=== PATIENT | female | born 1955 | race African-American/Black ===

== ENCOUNTER 2020-10-24 11:13 | Inpatient (IN) | payer MEDICARE, MEDICAID ==
[~2020-10-24] VITALS: Ht 162.6 cm; Wt 66.2 kg
[2020-10-24 12:19] LABS: BASOPHILS % 0.4 % (0.0-2.0); HEMOGLOBIN. 12.8 g/dL (12.0-16.0); MEAN CORPUSCULAR VOLUME 89.3 fL (81.0-99.0); MEAN PLATELET VOLUME 10.1 fl (7.4-10.4); MONOCYTES % 6.4 % (2.0-8.0); NEUTROPHILS % 61.2 % (40.0-76.0); PLATELET 124 x1000/uL (130-400); RED BLOOD CELL COUNT 4.26 mill/uL (4.2-5.4); RED CELL DISTRIBUTION WIDTH 13.5 % (11.6-14.6)
[2020-10-24 12:25] LABS: CHLORIDE 104 mEq/L (98-107)
[2020-10-24 12:32] LABS: ETHANOL BLOOD < 10 mg/dL
[2020-10-24 12:35] LABS: LDL CHOLESTEROL 62 mg/dL (5-100)
[2020-10-24] MEDS ORDERED: ASPIRIN 325MG EC TABLET PO ONE (12:45)
[2020-10-24] MEDS ORDERED: IOHEXOL-350 100 ML BOTTLE ONE (12:46)
[2020-10-24 12:53] LABS: PROTHROMBIN TIME 11.1 sec (9.6-11.0)
[2020-10-24] MEDS ORDERED: ONDANSETRON HCL 4MG/2ML INJ IV STA (13:04)
[2020-10-24] MEDS ORDERED: SODIUM CHLORIDE 0.9% 1,000 ML IV ONE (13:15)
[2020-10-24] MEDS ORDERED: MECLIZINE 25MG TABLET PO ONE (13:15)
[2020-10-24 13:22] LABS: CLARITY URINE TURBID (CLEAR); COLOR URINE YELLOW (YELLOW); KETONES URINE NEGATIVE (NEGATIVE); LEUKOCYTE ESTERASE URINE TRACE (NEGATIVE); NITRITE URINE NEGATIVE (NEGATIVE); OCCULT BLOOD URINE 2+ (NEGATIVE); PH URINE 8.5 (4.5-8.0); PROTEIN URINE NEGATIVE (NEGATIVE); SPECIFIC GRAVITY URINE 1.051 (1.005-1.030)
[2020-10-24 13:55] LABS: *BARBITURATES SCREEN URINE NEGATIVE (NEGATIVE)
[2020-10-24 13:56] LABS: *AMPHETAMINES SCREEN URINE NEGATIVE (NEGATIVE)
[2020-10-24 13:59] LABS: *BENZODIAZEPINES SCREEN URINE NEGATIVE (NEGATIVE)
[2020-10-24 14:00] LABS: *COCAINE SCREEN URINE NEGATIVE (NEGATIVE)
[2020-10-24 14:01] LABS: METHADONE URINE SCREEN NEGATIVE (NEGATIVE); OPIATES URINE SCREEN NEGATIVE (NEGATIVE)
[2020-10-24 14:02] LABS: CANNABINOID URINE SCREEN NEGATIVE (NEGATIVE); PHENCYCLIDINE URINE SCREEN NEGATIVE (NEGATIVE)
[2020-10-24] MEDS ORDERED: POTASSIUM CHLORIDE 20MEQ TABLET SR PO NR (14:31)
[2020-10-24] MEDS ORDERED: ACETAMINOPHEN 325MG TABLET PO PRN (15:00)
[2020-10-24] MEDS ORDERED: ONDANSETRON HCL 4MG/2ML INJ IV PRN (15:00)
[2020-10-24] MEDS: ENOXAPARIN 40MG/0.4ML SYR SUBCUT SCH (15:30)
[2020-10-24 19:10] VITALS: BP 141/82
[2020-10-24 20:00] VITALS: BP 141/97
[2020-10-24] MEDS ORDERED: POTA25TA8 MT (23:53)
[2020-10-24] MEDS ORDERED: LOSA1TAB34 MT (23:53)
[2020-10-25] VITALS (7 sets, daily range): BP systolic 91–130; BP diastolic 54–68
[2020-10-25] MEDS ORDERED: HEPARIN SODIUM 1,000 UNIT/1ML VIAL IV ONE (08:03)
[2020-10-25] MEDS: ENOXAPARIN 40MG/0.4ML SYR SUBCUT SCH (08:36)
[2020-10-25] MEDS ORDERED: ASPIRIN 81MG TABLET PO SCH (09:00)
[2020-10-25] MEDS ORDERED: LIDOCAINE HCL 1% 20ML VIAL (Pyxis) INJ ONE (14:00)
[2020-10-25] MEDS ORDERED: IOHEXOL-300 100 ML BOTTLE ONE (14:00)
[2020-10-25] MEDS ORDERED: FENTANYL CITRATE/PF 50MCG/ML 2ML VIAL ONE (14:22)
[2020-10-25] MEDS ORDERED: MIDAZOLAM HCL 2 MG/2 ML VIAL ONE (14:24)
[2020-10-25] MEDS ORDERED: VERAPAMIL HCL 2.5 MG/1 ML 2ML VIAL IV ONE (14:25)
[2020-10-25] MEDS ORDERED: ATROPINE SULFATE 1MG/10ML SYR IV PRN (15:30)
[2020-10-25] MEDS ORDERED: SODIUM CHLORIDE 0.45% 250 ML IV SCH (15:30)
[2020-10-25] MEDS ORDERED: HYDRALAZINE 20MG/ML VIAL ONE (16:50)
[2020-10-25] MEDS ORDERED: ATORVASTATIN CALCIUM 40MG TABLET PO SCH (21:00)
== END 2020-10-25 20:40 | disposition home or self-care (01) | DRG 73 ==
LOC: ER 11:30 → EDBEDREQTM 12:28 → EDBEDREQ 12:28 → EDBEDREQSVC 12:28 → 8WST 13:35 → EDBEDREQTM 13:54 → EDBEDREQ 13:54 → ENRESERV 18:40
PROVIDERS: ADMIT Internal Medicine; ATTEND Internal Medicine
PROC: 4A023N7 Measurement of Cardiac Sampling and Pressure, Left Heart, Percutaneous Approach (ICD-10-PCS; principal; 2020-10-25)
PROC: B211YZZ Fluoroscopy of Multiple Coronary Arteries using Other Contrast (ICD-10-PCS; 2020-10-25)
DX: G90.8 Other disorders of autonomic nervous system (principal); I21.4 Non-ST elevation (NSTEMI) myocardial infarction; J98.11 Atelectasis; I25.10 Atherosclerotic heart disease of native coronary artery without angina pectoris; I16.0 Hypertensive urgency; E87.6 Hypokalemia; J45.909 Unspecified asthma, uncomplicated; R29.810 Facial weakness; I10 Essential (primary) hypertension; Z20.822 Contact with and (suspected) exposure to COVID-19; E11.9 Type 2 diabetes mellitus without complications; H55.00 Unspecified nystagmus; Z88.0 Allergy status to penicillin; Z88.5 Allergy status to narcotic agent
CPT/HCPCS: 36415; 70496; 70498; 70551; 71045; 80053; 80305; 80320; 81003; 83036; 83721; 84484; 85025; 87426; 92610; 93005; 93306; 93458; 96374; 97162; 99291; C1769; C1887; C1893; J0360; J1644; J1650; J2250; J2405; J3010; J3490; J7030; J8597; Q9967; G0480